=== PATIENT | female | born 1950 | race Caucasian/White ===

== ENCOUNTER 2020-10-02 20:31 | Emergency (ER) | payer OTHER ==
[2020-10-02] MEDS ORDERED: HYDROCHLOROTHIA50 MG PO (23:41)
== END 2020-10-03 00:08 | disposition home or self-care (01) ==
LOC: ER1 20:31
DX: I10 Essential (primary) hypertension (principal); R51.9 Headache, unspecified
CPT/HCPCS: 70450; 82550; 82553; 83874; 84484; 93005; 96374; 99284; J1885

== ENCOUNTER 2021-09-06 11:43 | Emergency (ER) | payer OTHER ==
[~2021-09-06 11:43] MED LIST: HYDROCHLOROTHIA50 MG PO
[2021-09-06] MEDS ORDERED: IBUPROFEN400 MG PO (13:12)
== END 2021-09-06 13:57 | disposition home or self-care (01) ==
LOC: ER1 11:43
DX: S92.314A Nondisplaced fracture of first metatarsal bone, right foot, initial encounter for closed fracture (principal); I10 Essential (primary) hypertension; E11.9 Type 2 diabetes mellitus without complications; W22.8XXA Striking against or struck by other objects, initial encounter
CPT/HCPCS: 73610; 73630; 99283

== ENCOUNTER 2021-09-25 21:07 | Emergency (ER) | payer OTHER ==
[~2021-09-25 21:07] MED LIST changes: +IBUPROFEN400 MG PO
[2021-09-25 22:15] LABS: HEMOGLOBIN 12.5 gm/dl (12.3-15.3); RED BLOOD COUNT 4.27 M/UL (4.00-5.10); WHITE BLOOD COUNT 11.4 K/UL (4.5-11.0)
[2021-09-25 22:35] LABS: BUN/CREATININE RATIO 30 (0-10)
[2021-09-25] MEDS ORDERED: CATAPRES 0.1MG0.1 MG PO (23:33)
== END 2021-09-25 23:38 | disposition home or self-care (01) ==
LOC: ER1 21:07
PROVIDERS: Physician Assistant
DX: I10 Essential (primary) hypertension (principal); R51.9 Headache, unspecified; E87.6 Hypokalemia; H92.03 Otalgia, bilateral; K21.9 Gastro-esophageal reflux disease without esophagitis; E11.9 Type 2 diabetes mellitus without complications; Z79.899 Other long term (current) drug therapy; Z91.011 Allergy to milk products
CPT/HCPCS: 70450; 80053; 82550; 82553; 84484; 85025; 93005; 99284

== ENCOUNTER → 2021-10-10 | Outpatient (CLI) | payer OTHER ==
[~2021-10-10] MED LIST changes: +CATAPRES 0.1MG0.1 MG PO
== END ==
LOC: KOH-I 09:04
DX: M84.371A Stress fracture, right ankle, initial encounter for fracture (principal)
CPT/HCPCS: 73610